=== PATIENT | male | born 1970 | race African-American/Black ===

== ENCOUNTER 2025-07-29 13:47 | Inpatient (IN) | payer OTHER ==
[~2025-07-29 13:47] MED LIST: Iopamidol-370 76% 500 ML MDV (1 ML CHARGE) ONE
[2025-07-29 14:11] LABS: #Basophils 0.03 10x3/uL (0.0-0.2); #Eosinophils 0.08 10x3/uL (0.0-0.7); #Monocytes 0.51 10x3/uL (0.11-0.59); #Neutrophils 3.32 10x3/uL (1.40-6.50); %Basophils 0.6 % (0.0-1.0); %Eosinophils 1.5 % (0.0-10.0); %Lymphocytes 24.5 % (21.0-51.0); %Monocytes 9.8 % (0.0-10.0); %Neutrophils 63.4 % (42.0-75.0); Hematocrit 41.2 % (42.0-52.0); Hemoglobin 13.3 g/dL (14.0-18.0); Mean Corpuscular Hemoglobin 27.6 pg (27.0-31.0); Mean Corpuscular Volume 85.5 fL (78.0-98.0); Platelet Count 282 10x3/uL (130-400); Red Blood Cell (RBC) Count 4.82 mill/uL (4.70-6.10); White Blood Cell (WBC) Count 5.23 10x3/uL (4.8-10.8)
[2025-07-29 14:25] LABS: ALT (SGPT) Less than 7 U/L (Less than 45); AST (SGOT) 31 U/L (11-34); Albumin 3.2 g/dL (3.1-4.5); Alkaline Phosphatase 78 U/L (40-110); Anion Gap 7 mmol/L (10-20); BUN (Urea Nitrogen) 22 mg/dL (8.4-25.7); Bilirubin, Total 0.4 mg/dL (0.3-1.2); Calc. Creatinine Clearance 0 mL/min (70-130); Calcium 9.2 mg/dL (7.8-10.44); Carbon Dioxide 21 mmol/L (22-29); Chloride 114 mmol/L (98-107); Globulin 3.8 g/dL (2.4-3.5); Glucose 99 mg/dL (70-105); Potassium 4.5 mmol/L (3.5-5.1); Sodium 137 mmol/L (136-145)
[2025-07-29] MEDS ORDERED: Albuterol 2.5 MG (0.5 mL) NEB ONE (14:37)
[2025-07-29 18:47] LABS: INR-International Normal Ratio 0.9; PTT 28.3 sec (22.9-36.1); Prothrombin Time 12.4 sec (12.0-14.7)
[2025-07-29] MEDS ORDERED: Guaifenesin DM 100-10/5 ML UDCUP PO PRN (20:13)
[2025-07-29] MEDS ORDERED: Calcium Carbonate 500 MG ChewTAB PO PRN (20:13)
[2025-07-29] MEDS ORDERED: Ondansetron PF 4 MG/2 ML Vial IVP PRN (20:13)
[2025-07-29] MEDS ORDERED: Glucagon 1 MG/ML KIT IM PRN (20:19)
[2025-07-29] MEDS ORDERED: Dextrose 50% Abboject 50 ML SYRINGE SLOW IVP PRN (20:19)
[2025-07-29] MEDS: Apixaban 5 MG TAB PO SCH (20:42)
[2025-07-29] MEDS: Acetaminophen 325 MG TAB PO PRN (21:08)
[2025-07-30 04:38] LABS: #Basophils 0.04 10x3/uL (0.0-0.2); #Eosinophils 0.11 10x3/uL (0.0-0.7); #Monocytes 0.52 10x3/uL (0.11-0.59); #Neutrophils 3.23 10x3/uL (1.40-6.50); %Basophils 0.8 % (0.0-1.0); %Eosinophils 2.1 % (0.0-10.0); %Lymphocytes 25.9 % (21.0-51.0); %Monocytes 9.8 % (0.0-10.0); %Neutrophils 61.0 % (42.0-75.0); Hematocrit 40.3 % (42.0-52.0); Hemoglobin 12.7 g/dL (14.0-18.0); Mean Corpuscular Hemoglobin 27.3 pg (27.0-31.0); Mean Corpuscular Volume 86.7 fL (78.0-98.0); Platelet Count 263 10x3/uL (130-400); Red Blood Cell (RBC) Count 4.65 mill/uL (4.70-6.10); White Blood Cell (WBC) Count 5.29 10x3/uL (4.8-10.8)
[2025-07-30 04:48] LABS: Anion Gap 12 mmol/L (10-20); BUN (Urea Nitrogen) 24 mg/dL (8.4-25.7); Calc. Creatinine Clearance 81 mL/min (70-130); Calcium 8.8 mg/dL (7.8-10.44); Carbon Dioxide 21 mmol/L (22-29); Chloride 108 mmol/L (98-107); Glucose 102 mg/dL (70-105); Potassium 4.1 mmol/L (3.5-5.1); Sodium 137 mmol/L (136-145)
[2025-07-30] MEDS: Lisinopril 20 MG TAB PO SCH (08:16)
[2025-07-30] MEDS: Pantoprazole 40 MG DR.TAB PO SCH (08:16)
[2025-07-30] MEDS: Spironolactone 25 MG TAB PO SCH (08:16)
[2025-07-30] MEDS: Carvedilol 6.25 MG TAB PO SCH (08:16)
[2025-07-30] MEDS: Isosorbide Mononitrate 20 MG TAB PO SCH (08:16)
[2025-07-30] MEDS ORDERED: Nitroglycerin 0.4 MG TAB (25 Tab Bottle) SL PRN (12:32)
[2025-07-31 01:48] VITALS: BMI 22.4
[2025-07-31 05:24] LABS: #Basophils 0.03 10x3/uL (0.0-0.2); #Eosinophils 0.12 10x3/uL (0.0-0.7); #Monocytes 0.44 10x3/uL (0.11-0.59); #Neutrophils 3.03 10x3/uL (1.40-6.50); %Basophils 0.6 % (0.0-1.0); %Eosinophils 2.6 % (0.0-10.0); %Lymphocytes 22.1 % (21.0-51.0); %Monocytes 9.4 % (0.0-10.0); %Neutrophils 64.9 % (42.0-75.0); Hematocrit 39.6 % (42.0-52.0); Hemoglobin 12.7 g/dL (14.0-18.0); Mean Corpuscular Hemoglobin 27.5 pg (27.0-31.0); Mean Corpuscular Volume 85.9 fL (78.0-98.0); Platelet Count 252 10x3/uL (130-400); Red Blood Cell (RBC) Count 4.61 mill/uL (4.70-6.10); White Blood Cell (WBC) Count 4.67 10x3/uL (4.8-10.8)
[2025-07-31 05:36] LABS: Anion Gap 12 mmol/L (10-20); BUN (Urea Nitrogen) 27 mg/dL (8.4-25.7); Calc. Creatinine Clearance 72 mL/min (70-130); Calcium 9.1 mg/dL (7.8-10.44); Carbon Dioxide 23 mmol/L (22-29); Chloride 108 mmol/L (98-107); Glucose 104 mg/dL (70-105); Magnesium 1.8 mg/dL (1.6-2.6); Potassium 4.3 mmol/L (3.5-5.1); Sodium 139 mmol/L (136-145)
[2025-08-01 05:28] LABS: #Basophils 0.04 10x3/uL (0.0-0.2); #Eosinophils 0.12 10x3/uL (0.0-0.7); #Monocytes 0.59 10x3/uL (0.11-0.59); #Neutrophils 3.46 10x3/uL (1.40-6.50); %Basophils 0.7 % (0.0-1.0); %Eosinophils 2.2 % (0.0-10.0); %Lymphocytes 21.8 % (21.0-51.0); %Monocytes 10.9 % (0.0-10.0); %Neutrophils 64.0 % (42.0-75.0); Hematocrit 43.0 % (42.0-52.0); Hemoglobin 14.2 g/dL (14.0-18.0); Mean Corpuscular Hemoglobin 27.8 pg (27.0-31.0); Mean Corpuscular Volume 84.3 fL (78.0-98.0); Platelet Count 280 10x3/uL (130-400); Red Blood Cell (RBC) Count 5.10 mill/uL (4.70-6.10); White Blood Cell (WBC) Count 5.41 10x3/uL (4.8-10.8)
[2025-08-01 05:54] LABS: Anion Gap 12 mmol/L (10-20); BUN (Urea Nitrogen) 28 mg/dL (8.4-25.7); Calc. Creatinine Clearance 72 mL/min (70-130); Calcium 9.3 mg/dL (7.8-10.44); Carbon Dioxide 22 mmol/L (22-29); Chloride 105 mmol/L (98-107); Glucose 110 mg/dL (70-105); Magnesium 1.9 mg/dL (1.6-2.6); Potassium 4.2 mmol/L (3.5-5.1); Sodium 135 mmol/L (136-145)
[2025-08-01] MEDS: PNEUMOC 20-VAL CONJ-DIP CRM/PF 0.5 ML SYRINGE IM ONE (10:53)
[2025-08-02 05:22] LABS: #Basophils 0.04 10x3/uL (0.0-0.2); #Eosinophils 0.12 10x3/uL (0.0-0.7); #Monocytes 0.50 10x3/uL (0.11-0.59); #Neutrophils 4.30 10x3/uL (1.40-6.50); %Basophils 0.6 % (0.0-1.0); %Eosinophils 1.9 % (0.0-10.0); %Lymphocytes 20.9 % (21.0-51.0); %Monocytes 7.9 % (0.0-10.0); %Neutrophils 68.2 % (42.0-75.0); Hematocrit 43.8 % (42.0-52.0); Hemoglobin 14.2 g/dL (14.0-18.0); Mean Corpuscular Hemoglobin 27.3 pg (27.0-31.0); Mean Corpuscular Volume 84.1 fL (78.0-98.0); Platelet Count 288 10x3/uL (130-400); Red Blood Cell (RBC) Count 5.21 mill/uL (4.70-6.10); White Blood Cell (WBC) Count 6.31 10x3/uL (4.8-10.8)
[2025-08-02 05:40] LABS: Anion Gap 13 mmol/L (10-20); BUN (Urea Nitrogen) 36 mg/dL (8.4-25.7); Calc. Creatinine Clearance 66 mL/min (70-130); Calcium 9.3 mg/dL (7.8-10.44); Carbon Dioxide 20 mmol/L (22-29); Chloride 105 mmol/L (98-107); Glucose 113 mg/dL (70-105); Magnesium 2.3 mg/dL (1.6-2.6); Potassium 4.4 mmol/L (3.5-5.1); Sodium 134 mmol/L (136-145)
[2025-08-02] MEDS ORDERED: Acetaminophen/Codeine 30-300mg Tablet PO PRN (10:35)
[2025-08-02] MEDS ORDERED: Acetaminophen 325 MG TAB PO PRN (10:36)
[2025-08-02] MEDS: Isosorbide Mononitrate 20 MG TAB PO SCH (13:21)
[2025-08-02] MEDS ORDERED: Lisinopril 20 MG TAB PO SCH (21:00)
[2025-08-03 04:57] LABS: #Basophils 0.06 10x3/uL (0.0-0.2); #Eosinophils 0.14 10x3/uL (0.0-0.7); #Monocytes 0.47 10x3/uL (0.11-0.59); #Neutrophils 2.61 10x3/uL (1.40-6.50); %Basophils 1.3 % (0.0-1.0); %Eosinophils 3.1 % (0.0-10.0); %Lymphocytes 27.9 % (21.0-51.0); %Monocytes 10.3 % (0.0-10.0); %Neutrophils 57.0 % (42.0-75.0); Hematocrit 41.6 % (42.0-52.0); Hemoglobin 13.2 g/dL (14.0-18.0); Mean Corpuscular Hemoglobin 27.0 pg (27.0-31.0); Mean Corpuscular Volume 85.1 fL (78.0-98.0); Platelet Count 267 10x3/uL (130-400); Red Blood Cell (RBC) Count 4.89 mill/uL (4.70-6.10); White Blood Cell (WBC) Count 4.58 10x3/uL (4.8-10.8)
[2025-08-03 05:21] LABS: Anion Gap 12 mmol/L (10-20); BUN (Urea Nitrogen) 29 mg/dL (8.4-25.7); Calc. Creatinine Clearance 72 mL/min (70-130); Calcium 9.2 mg/dL (7.8-10.44); Carbon Dioxide 23 mmol/L (22-29); Chloride 107 mmol/L (98-107); Glucose 103 mg/dL (70-105); Potassium 4.5 mmol/L (3.5-5.1); Sodium 137 mmol/L (136-145)
[2025-08-03 10:58] LABS: Magnesium 2.1 mg/dL (1.6-2.6)
[2025-08-03 12:09] VITALS: BP 132/88; TEMP 97.4
[2025-08-04] MEDS ORDERED: metFORMIN 500 MG TAB PO SCH (08:00)
== END 2025-08-03 16:10 | disposition home or self-care (01) | DRG 917 ==
LOC: ERS 13:47 → OBS 18:59 → INTOOBSV 18:59 → OBSVTOIN 07-31 14:42
PROVIDERS: ADMIT Internal Medicine; ATTEND Internal Medicine
DX: T40.5X1A Poisoning by cocaine, accidental (unintentional), initial encounter (principal); I21.A1 Myocardial infarction type 2; I50.22 Chronic systolic (congestive) heart failure; R07.9 Chest pain, unspecified; M54.30 Sciatica, unspecified side; E11.9 Type 2 diabetes mellitus without complications; E78.5 Hyperlipidemia, unspecified; F41.9 Anxiety disorder, unspecified; F31.9 Bipolar disorder, unspecified; I25.10 Atherosclerotic heart disease of native coronary artery without angina pectoris; F20.9 Schizophrenia, unspecified; F17.210 Nicotine dependence, cigarettes, uncomplicated; I11.0 Hypertensive heart disease with heart failure; Z88.8 Allergy status to other drugs, medicaments and biological substances; Z98.890 Other specified postprocedural states; Z79.02 Long term (current) use of antithrombotics/antiplatelets; Z86.711 Personal history of pulmonary embolism
CPT/HCPCS: 36415; 36416; 71045; 71275; 80048; 80053; 82550; 83036; 83735; 83880; 84484; 85025; 85379; 85610; 85730; 93005; 93306; G0378; J1815; J7611; Q9967